=== PATIENT | female | born 1940 | race African-American/Black ===

== ENCOUNTER 2017-07-03 14:02 | Emergency (ER) | payer MEDICARE, MEDICAID ==
[~2017-07-03] VITALS: Ht 167.6 cm; Wt 90.0 kg
[2017-07-03 15:22] LABS: BASOPHILS % 0.3 % (0.0-2.0); EOSINOPHILS % 0.2 % (0.0-5.0); HEMOGLOBIN. 15.4 g/dL (12.0-16.0); LYMPHOCYTES % 9.3 % (20.0-50.0); MEAN CORPUSCULAR HEMOGLOBIN 26.2 pg (28.0-32.0); MEAN CORPUSCULAR VOLUME 80.3 fL (81.0-99.0); MONOCYTES % 5.2 % (2.0-8.0); PLATELET 192 x1000/uL (130-400); RED BLOOD CELL COUNT 5.86 mill/uL (4.2-5.4); RED CELL DISTRIBUTION WIDTH 14.8 % (11.6-14.6)
[2017-07-03 15:25] LABS: CHLORIDE 108 mEq/L (98-107)
[2017-07-03 15:29] LABS: CARBON DIOXIDE 24 mEq/L (21-32); PROTHROMBIN TIME 10.3 sec (9.4-11.6)
[2017-07-03] MEDS ORDERED: SODIUM CHLORIDE 0.9% 1,000 ML IV ONE (15:43)
[2017-07-03 16:57] LABS: CLARITY URINE CLOUDY (CLEAR); COLOR URINE YELLOW (YELLOW); GLUCOSE URINE NEGATIVE (NEGATIVE); KETONES URINE TRACE (NEGATIVE); LEUKOCYTE ESTERASE URINE NEGATIVE (NEGATIVE); NITRITE URINE NEGATIVE (NEGATIVE); OCCULT BLOOD URINE NEGATIVE (NEGATIVE); PROTEIN URINE 1+ (NEGATIVE); SPECIFIC GRAVITY URINE 1.024 (1.005-1.030)
[2017-07-03 23:05] VITALS: BP 160/83
== END 2017-07-03 23:10 | disposition home or self-care (01) ==
LOC: ER 14:04
DX: R53.1 Weakness (principal); E11.9 Type 2 diabetes mellitus without complications; I10 Essential (primary) hypertension; Z98.2 Presence of cerebrospinal fluid drainage device; Z86.73 Personal history of transient ischemic attack (TIA), and cerebral infarction without residual deficits; Z86.011 Personal history of benign neoplasm of the brain
CPT/HCPCS: 36415; 71010; 80053; 81001; 83605; 84484; 85025; 85610; 87040; 87086; 93005; 96360; 96361; 99285; J7030

== ENCOUNTER 2021-05-15 08:10 | Inpatient (IN) | payer MEDICARE, MEDICAID ==
[~2021-05-15] VITALS: Ht 167.6 cm; Wt 91.2 kg
[~2021-05-15 08:10] MED LIST: DOCU-138 PO; LEVE10006 MT; METO25TA6 MT
[2021-05-15] MEDS ORDERED: PANTOPRAZOLE SODIUM 40 MG/VIAL IV STA (08:26)
[2021-05-15 10:23] LABS: CLARITY URINE CLEAR (CLEAR); COLOR URINE DARK YELLOW (YELLOW); KETONES URINE 1+ (NEGATIVE); LEUKOCYTE ESTERASE URINE TRACE (NEGATIVE); NITRITE URINE NEGATIVE (NEGATIVE); OCCULT BLOOD URINE NEGATIVE (NEGATIVE); PH URINE 5.5 (4.5-8.0); PROTEIN URINE 2+ (NEGATIVE); SPECIFIC GRAVITY URINE 1.032 (1.005-1.030)
[2021-05-15 10:26] LABS: BASOPHILS % 0.2 % (0.0-2.0); HEMATOCRIT. 41.6 % (36.0-48.0); HEMOGLOBIN. 13.9 g/dL (12.0-16.0); LYMPHOCYTES % 8.2 % (20.0-50.0); MEAN CORPUSCULAR HEMOGLOBIN 25.4 pg (28.0-32.0); MEAN CORPUSCULAR VOLUME 76.2 fL (81.0-99.0); MONOCYTES % 6.1 % (2.0-8.0); NEUTROPHILS % 85.5 % (40.0-76.0); RED BLOOD CELL COUNT 5.46 mill/uL (4.2-5.4); RED CELL DISTRIBUTION WIDTH 15.8 % (11.6-14.6)
[2021-05-15 10:29] LABS: CHLORIDE 109 mEq/L (98-107)
[2021-05-15 10:30] LABS: PROTHROMBIN TIME 10.7 sec (9.6-11.0)
[2021-05-15] MEDS ORDERED: PIPERACILLIN/TAZOBACTAM 3.375GM/50ML PREMIX IV NR (10:30)
[2021-05-15 10:33] LABS: ETHANOL BLOOD < 10 mg/dL
[2021-05-15 10:34] LABS: *AMPHETAMINES SCREEN URINE NEGATIVE (NEGATIVE); *BARBITURATES SCREEN URINE NEGATIVE (NEGATIVE); *BENZODIAZEPINES SCREEN URINE NEGATIVE (NEGATIVE); *COCAINE SCREEN URINE NEGATIVE (NEGATIVE); METHADONE URINE SCREEN NEGATIVE (NEGATIVE); OPIATES URINE SCREEN NEGATIVE (NEGATIVE)
[2021-05-15 10:35] LABS: CANNABINOID URINE SCREEN NEGATIVE (NEGATIVE); PHENCYCLIDINE URINE SCREEN NEGATIVE (NEGATIVE)
[2021-05-15 10:44] LABS: PLATELET 277 x1000/uL (130-400)
[2021-05-15] MEDS ORDERED: KCL 20MEQ/100ML PREMIX 100 ML IV ONE (11:15)
[2021-05-15] MEDS ORDERED: IOHEXOL-300 100 ML BOTTLE ONE (12:57)
[2021-05-15] MEDS ORDERED: PIPERACILLIN/TAZ 3.375G PREMIX 50 ML IV SCH (14:00)
[2021-05-15] MEDS: PANTOPRAZOLE SODIUM 40 MG/VIAL IV SCH (17:51)
[2021-05-15] MEDS ORDERED: ZOLPIDEM TARTRATE 5MG TABLET PO PRN (18:30)
[2021-05-15] MEDS ORDERED: ONDANSETRON HCL 4MG/2ML INJ IV PRN (18:30)
[2021-05-15] MEDS ORDERED: ACETAMINOPHEN 325MG TABLET PO PRN (18:30)
[2021-05-15] MEDS: ENOXAPARIN 40MG/0.4ML SYR SUBCUT SCH (20:45)
[2021-05-15] MEDS ORDERED: BISACODYL 10MG SUPP PR NR (23:00)
[2021-05-16] VITALS (7 sets, daily range): BP systolic 1–168; BP diastolic 63–99
[2021-05-16] MEDS: PIPERACILLIN/TAZOBACTAM 3.375G in DEXT 5% WATER 50ML IV SCH ×3 (01:46→21:10)
[2021-05-16] MEDS ORDERED: DEXTROSE 50% WATER 50ML SYRINGE IV PRN (04:00)
[2021-05-16 06:33] LABS: CHLORIDE 111 mEq/L (98-107)
[2021-05-16 06:34] LABS: BASOPHILS % 0.3 % (0.0-2.0); EOSINOPHILS % 0.5 % (0.0-5.0); HEMATOCRIT. 42.1 % (36.0-48.0); HEMOGLOBIN. 13.4 g/dL (12.0-16.0); LYMPHOCYTES % 17.9 % (20.0-50.0); MEAN CORPUSCULAR VOLUME 78.5 fL (81.0-99.0); MEAN PLATELET VOLUME 9.2 fl (7.4-10.4); MONOCYTES % 7.3 % (2.0-8.0); PLATELET 267 x1000/uL (130-400); RED BLOOD CELL COUNT 5.36 mill/uL (4.2-5.4)
[2021-05-16] MEDS: INSULIN LISPRO 100 UNITS/ML SUBCUT SCH ×4 (06:44→21:00)
[2021-05-16] MEDS: BLOOD SUGAR DIAGNOSTIC STRIP TEST SCH ×4 (06:44→21:15)
[2021-05-16] MEDS: PANTOPRAZOLE SODIUM 40 MG/VIAL IV SCH ×2 (08:08→17:31)
[2021-05-16] MEDS ORDERED: POTASSIUM CHLORIDE INJ 40 MEQ in DEXT 5% WATER 250 ML IV SCH (12:00)
[2021-05-16] MEDS: POTASSIUM CHLORIDE INJ 40 MEQ in DEXTROSE 5% WATER 1,000 ML IV SCH (13:59)
[2021-05-16] MEDS: ENOXAPARIN 40MG/0.4ML SYR SUBCUT SCH (17:31)
[2021-05-16] MEDS: HYDRALAZINE 20MG/ML VIAL IV PRN (21:32)
[2021-05-17] VITALS (7 sets, daily range): BP systolic 115–172; BP diastolic 54–81
[2021-05-17] MEDS: POTASSIUM CHLORIDE INJ 40 MEQ in DEXTROSE 5% WATER 1,000 ML IV SCH ×2 (02:36→16:42)
[2021-05-17 05:56] LABS: BASOPHILS % 0.2 % (0.0-2.0); EOSINOPHILS % 0.3 % (0.0-5.0); HEMATOCRIT. 36.9 % (36.0-48.0); HEMOGLOBIN. 11.7 g/dL (12.0-16.0); MEAN CORPUSCULAR VOLUME 78.7 fL (81.0-99.0); MEAN PLATELET VOLUME 9.2 fl (7.4-10.4); MONOCYTES % 5.9 % (2.0-8.0); NEUTROPHILS % 79.6 % (40.0-76.0); PLATELET 253 x1000/uL (130-400); RED BLOOD CELL COUNT 4.69 mill/uL (4.2-5.4); RED CELL DISTRIBUTION WIDTH 16.1 % (11.6-14.6)
[2021-05-17 06:08] LABS: CHLORIDE 113 mEq/L (98-107)
[2021-05-17] MEDS: PIPERACILLIN/TAZOBACTAM 3.375G in DEXT 5% WATER 50ML IV SCH ×3 (06:10→21:04)
[2021-05-17] MEDS: INSULIN LISPRO 100 UNITS/ML SUBCUT SCH ×4 (06:15→21:00)
[2021-05-17] MEDS: BLOOD SUGAR DIAGNOSTIC STRIP TEST SCH ×4 (06:15→21:04)
[2021-05-17] MEDS: PANTOPRAZOLE SODIUM 40 MG/VIAL IV SCH ×2 (08:05→17:34)
[2021-05-17] MEDS ORDERED: BISACODYL 10MG SUPP PR NR (12:15)
[2021-05-17] MEDS ORDERED: BISACODYL 10MG SUPP PR SCH (12:45)
[2021-05-17] MEDS ORDERED: POTASSIUM CHLORIDE INJ 40 MEQ in DEXT 5% WATER 250 ML IV NR (13:30)
[2021-05-17] MEDS: ENOXAPARIN 40MG/0.4ML SYR SUBCUT SCH (17:34)
[2021-05-17] MEDS: HYDRALAZINE 20MG/ML VIAL IV PRN (21:05)
[2021-05-18] VITALS: BP 115/49
[2021-05-18 04:00] VITALS: BP 149/58
[2021-05-18] MEDS: POTASSIUM CHLORIDE INJ 40 MEQ in DEXTROSE 5% WATER 1,000 ML IV SCH ×2 (04:36→19:24)
[2021-05-18] MEDS: BLOOD SUGAR DIAGNOSTIC STRIP TEST SCH ×4 (05:30→21:43)
[2021-05-18] MEDS: PIPERACILLIN/TAZOBACTAM 3.375G in DEXT 5% WATER 50ML IV SCH ×3 (05:30→22:00)
[2021-05-18] MEDS: INSULIN LISPRO 100 UNITS/ML SUBCUT SCH ×4 (05:31→21:00)
[2021-05-18 07:00] LABS: BASOPHILS % 0.3 % (0.0-2.0); EOSINOPHILS % 0.9 % (0.0-5.0); HEMATOCRIT. 37.8 % (36.0-48.0); HEMOGLOBIN. 12.2 g/dL (12.0-16.0); LYMPHOCYTES % 24.9 % (20.0-50.0); MEAN CORPUSCULAR VOLUME 77.2 fL (81.0-99.0); MEAN PLATELET VOLUME 9.2 fl (7.4-10.4); MONOCYTES % 5.5 % (2.0-8.0); NEUTROPHILS % 68.4 % (40.0-76.0); PLATELET 272 x1000/uL (130-400); RED CELL DISTRIBUTION WIDTH 16.6 % (11.6-14.6)
[2021-05-18 07:05] LABS: CHLORIDE 115 mEq/L (98-107)
[2021-05-18 08:00] VITALS: BP 164/91
[2021-05-18] MEDS: PANTOPRAZOLE SODIUM 40 MG/VIAL IV SCH ×2 (08:52→18:34)
[2021-05-18] MEDS: HYDRALAZINE 20MG/ML VIAL IV PRN ×2 (08:53→21:46)
[2021-05-18 12:00] VITALS: BP 141/72
[2021-05-18] MEDS ORDERED: POTASSIUM CHLORIDE INJ 40 MEQ in DEXT 5% WATER 250 ML IV SCH (14:00)
[2021-05-18] MEDS ORDERED: DIATR MEGLU/DIATRIZOATE SOLN 120ML ONE (16:07)
[2021-05-18] MEDS: ENOXAPARIN 40MG/0.4ML SYR SUBCUT SCH (18:34)
[2021-05-18 20:00] VITALS: BP 197/88
[2021-05-19] VITALS (8 sets, daily range): BP systolic 132–211; BP diastolic 64–119
[2021-05-19] MEDS: PIPERACILLIN/TAZOBACTAM 3.375G in DEXT 5% WATER 50ML IV SCH ×2 (05:00→14:05)
[2021-05-19] MEDS: BLOOD SUGAR DIAGNOSTIC STRIP TEST SCH ×3 (06:29→16:40)
[2021-05-19] MEDS: INSULIN LISPRO 100 UNITS/ML SUBCUT SCH ×3 (06:29→17:00)
[2021-05-19] MEDS ORDERED: SORBITOL 70% SOLN 30ML PO NR (07:15)
[2021-05-19] MEDS ORDERED: METOPROLOL TARTRATE 25MG TABLET PO SCH (09:00)
[2021-05-19] MEDS ORDERED: FAMOTIDINE 20MG/2ML VIAL IV SCH (09:00)
[2021-05-19] MEDS: POTASSIUM CHLORIDE INJ 40 MEQ in DEXTROSE 5% WATER 1,000 ML IV SCH (09:30)
[2021-05-19] MEDS: HYDRALAZINE 20MG/ML VIAL IV PRN (12:21)
[2021-05-19] MEDS ORDERED: NIFEDIPINE XL 60MG TAB PO SCH (12:30)
[2021-05-19] MEDS ORDERED: CLONIDINE 0.1MG TABLET PO PRN (12:30)
[2021-05-19] MEDS: ENOXAPARIN 40MG/0.4ML SYR SUBCUT SCH (18:24)
== END 2021-05-19 21:10 | DRG 872 ==
LOC: ER 08:10 → 7EST 12:31 → ENRESERV 20:12
PROVIDERS: ADMIT Internal Medicine Pulmonary Disease; ATTEND Internal Medicine Pulmonary Disease
DX: A41.9 Sepsis, unspecified organism (principal); K56.609 Unspecified intestinal obstruction, unspecified as to partial versus complete obstruction; E44.1 Mild protein-calorie malnutrition; K59.39 Other megacolon; K56.7 Ileus, unspecified; E11.9 Type 2 diabetes mellitus without complications; E66.9 Obesity, unspecified; E87.6 Hypokalemia; F20.9 Schizophrenia, unspecified; G40.909 Epilepsy, unspecified, not intractable, without status epilepticus; I10 Essential (primary) hypertension; Z86.73 Personal history of transient ischemic attack (TIA), and cerebral infarction without residual deficits; Z98.2 Presence of cerebrospinal fluid drainage device; Z68.32 Body mass index [BMI] 32.0-32.9, adult
CPT/HCPCS: 36415; 71045; 74018; 74177; 74250; 80048; 80053; 80305; 80320; 81003; 82962; 83605; 83735; 84484; 85025; 86850; 86900; 93005; 99291; C1893; C9113; J0360; J1650; J2543; J3480; J3490; J7040; J7060; J7070; Q9963; Q9967; A4315; G0480